=== PATIENT | female | born 1965 | race Caucasian/White ===

== ENCOUNTER 2018-07-24 11:35 | Outpatient (CLI) | payer BC | END 2018-07-24 11:36 | disposition home or self-care (01) | LOC: BICMAMMO 11:35 | PROVIDERS: ATTEND Family Medicine | DX: Z12.31 Encounter for screening mammogram for malignant neoplasm of breast (principal); R92.1 Mammographic calcification found on diagnostic imaging of breast | CPT/HCPCS: 77063; 77067 ==

== ENCOUNTER 2021-03-26 11:07 | Outpatient (CLI) | payer BC | END 2021-03-26 11:08 | disposition home or self-care (01) | LOC: BICMAMMO 11:07 | PROVIDERS: ATTEND Family Medicine | DX: Z12.31 Encounter for screening mammogram for malignant neoplasm of breast (principal) | CPT/HCPCS: 77063; 77067 ==

== ENCOUNTER 2025-07-09 09:53 | Outpatient (CLI) | payer BC | END 2025-07-09 09:54 | disposition home or self-care (01) | LOC: BICMAMMO 09:53 | PROVIDERS: ATTEND Physician Assistant | DX: Z12.31 Encounter for screening mammogram for malignant neoplasm of breast (principal); M85.89 Other specified disorders of bone density and structure, multiple sites; Z80.3 Family history of malignant neoplasm of breast | CPT/HCPCS: 77063; 77067; 77080 ==